=== PATIENT | male | born 1960 | race Caucasian/White ===

== ENCOUNTER 2017-12-29 16:17 | Inpatient (IN) | payer OTHER ==
[~2017-12-29] VITALS: Ht 182.9 cm; Wt 86.4 kg
[2017-12-29] MEDS ORDERED: ONDANSETRON ODT 4 MG PO ONE (17:00)
[2017-12-29] MEDS ORDERED: MAALOX/HYOSCYAMINE/LIDOCAINE 45 ML BTL PO ONE (17:00)
[2017-12-29] MEDS ORDERED: FAMOTIDINE 20 MG TABLET PO ONE (17:00)
[2017-12-29] MEDS ORDERED: FAMOTIDINE 20 MG TABLET ONE (17:02)
[2017-12-29] MEDS ORDERED: ONDANSETRON ODT 4 MG ONE (17:03)
[2017-12-29] MEDS ORDERED: MAALOX/HYOSCYAMINE/LIDOCAINE 45 ML BTL ONE (17:03)
[2017-12-29] MEDS ORDERED: LACT1CAP35 PO (17:11)
[2017-12-29 17:15] LABS: BASOPHILS # (AUTO) 0.02 x10^3/uL (0-0.1); BASOPHILS % (AUTO) 0 % (0-1); EOSINOPHILS # (AUTO) 0.08 x10^3/uL (0-0.4); EOSINOPHILS % (AUTO) 1 % (1-7); LYMPHOCYTES # (AUTO) 1.23 x10^3/uL (1-3.4); LYMPHOCYTES % (AUTO) 16 % (22-44); MD NO; MEAN CORPUSCULAR HEMOGLOBIN 31.5 pg (27.5-34.5); MEAN CORPUSCULAR VOLUME 92.8 fL (81-97); MEAN PLATELET VOLUME 10.1 fL (7.4-10.4); MONOCYTES # (AUTO) 0.55 x10^3/uL (0.2-0.8); MONOCYTES % (AUTO) 7 % (2-9); NEUTROPHILS # (AUTO) 5.88 x10^3/uL (1.8-6.8); NEUTROPHILS % (AUTO) 76 % (42-75); PLATELET COUNT 206 x10^3/uL (130-400); RED BLOOD COUNT 4.67 x10^6/uL (4.38-5.82); RED CELL DISTRIBUTION WIDTH 13.5 % (9.4-14.8)
[2017-12-29 17:26] LABS: ALANINE AMINOTRANSFERASE 158 U/L (12-78); ALBUMIN 4.1 g/dL (3.4-5.0); ANION GAP 8 mmol/L (5-15); CALCIUM 8.9 mg/dL (8.5-10.1); CHLORIDE 106 mmol/L (98-107); CREATININE 0.76 mg/dL (0.7-1.3)
[2017-12-29 17:28] LABS: ALKALINE PHOSPHATASE 107 U/L (45-117); BILIRUBIN,TOTAL 2.3 mg/dL (0.2-1.0); TOTAL PROTEIN 7.6 g/dL (6.4-8.2)
[2017-12-29 17:29] LABS: TROPONIN I < 0.015 ng/mL (0.000-0.045)
[2017-12-29] MEDS ORDERED: MORPHINE SULFATE 4 MG/ML, 1ML ONE ×2 (17:46→18:28)
[2017-12-29] MEDS: MORPHINE SULFATE 4 MG/ML, 1ML IVPush PRN ×2 (17:51→18:38)
[2017-12-29] MEDS ORDERED: SODIUM CHLORIDE FLUSH 10ML SYR IVF ONE (18:00)
[2017-12-29] MEDS ORDERED: SODIUM CHLORIDE 0.9% 1,000ML IVBOLUS ONE (18:00)
[2017-12-29] MEDS ORDERED: ONDANSETRON 2MG/ML, 2ML IVPush ONE (18:00)
[2017-12-29] MEDS ORDERED: ACETAMINOPHEN 325 MG TABLET PO PRN (19:30)
[2017-12-29] MEDS ORDERED: morphine SULFATE 10 MG/ML, 1ML IVPush PRN (19:30)
[2017-12-29] MEDS ORDERED: LABETALOL 5MG/ML, 20ML IVPush PRN (19:30)
[2017-12-29] MEDS ORDERED: hydrALAzine 20 MG/ML, 1ML IVPush PRN (19:30)
[2017-12-29] MEDS ORDERED: ONDANSETRON 2MG/ML, 2ML IVPush PRN (19:30)
[2017-12-29] MEDS: LACTATED RINGERS 1,000 ML IV SCH (20:23)
[2017-12-30 01:39] VITALS: BP 90/53
[2017-12-30] MEDS: LACTATED RINGERS 1,000 ML IV SCH ×4 (03:13→23:31)
[2017-12-30 03:17] VITALS: BP 120/69
[2017-12-30 05:01] LABS: ALBUMIN 3.2 g/dL (3.4-5.0); ANION GAP 6 mmol/L (5-15); BASOPHILS # (AUTO) 0.03 x10^3/uL (0-0.1); BASOPHILS % (AUTO) 1 % (0-1); CALCIUM 7.9 mg/dL (8.5-10.1); CHLORIDE 110 mmol/L (98-107); EOSINOPHILS # (AUTO) 0.19 x10^3/uL (0-0.4); EOSINOPHILS % (AUTO) 4 % (1-7); LYMPHOCYTES # (AUTO) 1.48 x10^3/uL (1-3.4); LYMPHOCYTES % (AUTO) 30 % (22-44); MD NO; MEAN CORPUSCULAR HGB CONC 34.3 g/dL (33.2-36.2); MEAN CORPUSCULAR VOLUME 93.4 fL (81-97); MEAN PLATELET VOLUME 9.9 fL (7.4-10.4); MONOCYTES # (AUTO) 0.43 x10^3/uL (0.2-0.8); MONOCYTES % (AUTO) 9 % (2-9); NEUTROPHILS # (AUTO) 2.88 x10^3/uL (1.8-6.8); NEUTROPHILS % (AUTO) 57 % (42-75); PLATELET COUNT 174 x10^3/uL (130-400); RED BLOOD COUNT 4.07 x10^6/uL (4.38-5.82); RED CELL DISTRIBUTION WIDTH 13.7 % (9.4-14.8)
[2017-12-30 05:05] LABS: ALANINE AMINOTRANSFERASE 163 U/L (12-78); ALKALINE PHOSPHATASE 88 U/L (45-117); TOTAL PROTEIN 6.1 g/dL (6.4-8.2)
[2017-12-30 07:05] VITALS: BP 113/68
[2017-12-30] MEDS: ENOXAPARIN 40 MG/0.4 ML SQ SCH (08:00)
[2017-12-30 12:41] VITALS: BP 109/55
[2017-12-30 19:26] VITALS: BP 120/65
[2017-12-31 02:11] VITALS: BP 105/57
[2017-12-31] MEDS: LACTATED RINGERS 1,000 ML IV SCH (05:59)
[2017-12-31 07:31] VITALS: BP 124/61
[2017-12-31] MEDS: ENOXAPARIN 40 MG/0.4 ML SQ SCH (08:00)
[2017-12-31] MEDS ORDERED: PNEUMOC 13-VALENT VACC, PED 0.5 ML NC IM-VACC ONE (11:00)
[2017-12-31] MEDS ORDERED: PNEUMOCOCCAL 23 VACCINE IM-VACC ONE (11:30)
== END 2017-12-31 12:12 | disposition home or self-care (01) | DRG 439 ==
LOC: ED 18:10 → EDIP 19:08 → SUATTDRO 19:09 → 3NE 19:30 → DCLOUNGE 12-31 11:56
PROVIDERS: ADMIT Hospitalist; ATTEND Hospitalist
DX: K85.00 Idiopathic acute pancreatitis without necrosis or infection (principal); E44.1 Mild protein-calorie malnutrition; B18.2 Chronic viral hepatitis C; E83.51 Hypocalcemia; Z87.891 Personal history of nicotine dependence; K82.4 Cholesterolosis of gallbladder; Z68.25 Body mass index [BMI] 25.0-25.9, adult
CPT/HCPCS: 36415; 74181; 76700; 80053; 83690; 83735; 84100; 84478; 84484; 85025; 86677; 90732; 93005; 96361; 96374; 96376; Q0162; J2270; J7030; J7120

== ENCOUNTER → 2018-01-24 | Outpatient (CLI) | payer OTHER ==
[~2018-01-24] MED LIST: LACT1CAP35 PO; None at This Time
== END ==
LOC: STAR 08:08
PROVIDERS: ATTEND Surgery
DX: Z02.9 Encounter for administrative examinations, unspecified (principal)